=== PATIENT | female | born 1985 | race Two or more races ===

== ENCOUNTER 2022-07-16 14:55 | Inpatient (IN) | payer OTHER ==
[~2022-07-16] VITALS: Ht 167.6 cm; Wt 80.0 kg
[2022-07-16 15:50] VITALS: BP 149/119
[2022-07-16] MEDS ORDERED: diphenhdrAMINE HCL 50 MG/1 ML VL IV ONE (16:00)
[2022-07-16] MEDS ORDERED: SODIUM CHLORIDE 0.9% 1,000 ML IV ONE (16:00)
[2022-07-16] MEDS ORDERED: FAMOTIDINE (10MG/ML) 2ML VL IV ONE (16:00)
[2022-07-16] MEDS ORDERED: DexAMETHasone SOD PHOS 10MG/1ML VIAL INJ IM ONE (16:00)
[2022-07-16 16:24] LABS: Basophils # (auto) 0.1 10 ^3/uL (0-0.2); Basophils % (auto) 0.7 % (0.0-2.0); Eosinophils # (auto) 0.1 10 ^3/uL (0-0.8); Monocytes # (auto) 1.1 10 ^3/uL (0-1.3)
[2022-07-16 16:26] LABS: Eosinophils % (auto) 0.3 % (0.0-7.0); Hematocrit 34.5 % (36.0-46.0); Hemoglobin 10.4 g/dL (12.2-16.2); Lymphocytes # (auto) 1.4 10 ^3/uL (0.4-5.4); Lymphocytes % (auto) 7.5 % (10.0-50.0); Mean Corpuscular Hemoglobin 18.5 pg (28.0-32.0); Mean Corpuscular Hgb Conc. 30.2 g/dL (32.0-36.0); Monocytes % (auto) 6.1 % (0.0-12.0); Neutrophils # (auto) 15.7 10 ^3/uL (1.6-8.6); Neutrophils % (auto) 85.4 % (37.0-80.0); Red Blood Cells 5.66 10^6/uL (4.0-5.20); Red Cell Distribution Width 19.7 % (11.8-14.3); White Blood Cell 18.4 10^3/uL (4.4-10.8)
[2022-07-16 16:34] LABS: Albumin 3.8 g/dL (3.4-5.0); Anion Gap 7 (5-15); Blood Urea Nitrogen 8 mg/dL (7-18); Calcium 9.4 mg/dL (8.5-10.1); Carbon Dioxide 24 mmol/L (21-32); Chloride 104 mmol/L (98-107); Glucose 116 mg/dL (74-106); Potassium 3.1 mmol/L (3.5-5.1); Sodium 135 mmol/L (136-145)
[2022-07-16 16:43] LABS: Alanine Aminotransferase 88 U/L (13-56); Alkaline Phosphatase 130 U/L (45-117); Aspartate Aminotransferase 35 U/L (15-37); BUN/Creatinine Ratio 8.2; Bilirubin, Total 0.6 mg/dL (0.2-1.0); GFR African American 85 mL/min; GFR Non-African American 70 mL/min; Total Protein 9.1 g/dL (6.4-8.2)
[2022-07-16 16:53] LABS: CRP High Sensitivity > 19.0 mg/dL (< 0.3)
[2022-07-16] MEDS ORDERED: IOHEXOL 300 MG/ML 100ML BOTTLE IJ ONE (18:06)
[2022-07-16] MEDS ORDERED: PIPERACILLIN-TAZOB 3.375GM 100 ML IV ONE ×2 (18:30→19:45)
[2022-07-16] MEDS ORDERED: PENICILLIN G BENZ 1200000 UNITS/2 ML SYRG IM ONE (19:30)
[2022-07-16] MEDS ORDERED: TEMAZEPAM 15 MG CAP PO PRN (21:30)
[2022-07-16] MEDS ORDERED: HYDROcodone-ACET 5/325MG TAB PO PRN (21:30)
[2022-07-16] MEDS ORDERED: ACETAMINOPHEN 325 MG TAB PO PRN (21:30)
[2022-07-16] MEDS ORDERED: ONDANSETRON HCL 4 MG/2 ML VIAL IV PRN (21:30)
[2022-07-17] MEDS ORDERED: FERROUS SULFATE 325mg EC TAB PO SCH (08:00)
[2022-07-17] MEDS ORDERED: cefTRIAXone 1GM/50ML D5W 50 ML IV SCH (09:00)
[2022-07-17] MEDS ORDERED: LEVO-28 PO (10:02)
== END 2022-07-17 00:22 | disposition left against medical advice (07) | DRG 720 ==
LOC: ER 14:55 → OVERFLOW 21:27
PROVIDERS: ADMIT Nurse Practitioner; ATTEND Nurse Practitioner Acute Care
DX: A41.9 Sepsis, unspecified organism (principal); D50.9 Iron deficiency anemia, unspecified; J03.90 Acute tonsillitis, unspecified; R13.10 Dysphagia, unspecified; Z53.29 Procedure and treatment not carried out because of patient's decision for other reasons
CPT/HCPCS: 36415; 70491; 80053; 83605; 84702; 85025; 86141; 87040; 96361; 96365; 96372; 96375; G0378; J0561; J0696; J1100; J2543; J3490

== ENCOUNTER 2022-07-17 05:30 | Emergency (ER) | payer OTHER ==
[~2022-07-17] VITALS: Ht 167.6 cm; Wt 83.8 kg
[2022-07-17 06:33] VITALS: BP 152/97
[2022-07-17] MEDS ORDERED: cefTRIAXone 1GM/50ML D5W 50 ML IV ONE (10:00)
[2022-07-17] MEDS ORDERED: LEVO-28 PO (10:02)
[2022-07-17 12:22] LABS: Urine Bacteria NONE SEEN /hpf (None Seen); Urine Blood 1+ /uL (Negative); Urine Mucus FEW (None Seen); Urine WBC 856 /hpf (0 - 5); Urine WBC Clumps PRESENT /hpf (None Seen)
== END 2022-07-17 12:59 | disposition home or self-care (01) ==
LOC: ER 05:30
DX: J02.9 Acute pharyngitis, unspecified (principal); N39.0 Urinary tract infection, site not specified; Z88.8 Allergy status to other drugs, medicaments and biological substances
CPT/HCPCS: 71045; 81001; 96365